=== PATIENT | female | born 1960 | race Caucasian/White ===

== ENCOUNTER 2023-11-12 10:47 | Inpatient (IN) | payer OTHER, SELFPAY ==
[2023-11-12] VITALS (10 sets, daily range): BP systolic 145–189; BP diastolic 74–104; BMI 52.6; BMI 51.1
--- NOTE | 2023-11-12 04:59 | EDRN ---
seen by her dentist yesterday and had x-ray and no infection found. Pt was placed on Pen V K and has taken 2 doses. Pt awoke in the night and swelling has increased. Pt has a lump in her L nostril and has a whitish drainage. Pt has pressure around
her sinus area. area warm to touch.
[2023-11-12 06:14] LABS: % Basophils 0.2 % (0-2); % Eosinophils 0.1 % (0-6); % Immature Granulocytes 1.4 % (0-0.5); % Lymphocytes 8.9 % (20.5-51.1); % Monocytes 7.5 % (1.7-9.3); % Neutrophils 81.9 % (42.2-75.2); Absolute Basophils 0.1 10^3/uL (0-0.2); Absolute Immature Granulocytes 0.4 10^3/uL (0-0.05); Absolute Lymphocytes 2.3 10^3/uL (1.2-3.4); Absolute Neutrophils 21.1 10^3/uL (1.4-6.5); Hemoglobin 15.7 g/dL (12.0-16.0); Mean Corp Hgb Conc. 35.7 g/dL (33.0-37.0); Mean Corpuscular Hgb 30.4 pg (27.0-31.0); Mean Corpuscular Volume 85.3 fL (81.0-99.0); Mean Platelet Volume 9.7 fL (7.4-10.4); Nucleated Red Blood Cells % 0 %; Platelet Count 453 10^3/uL (130-400); Red Blood Cell Count 5.16 10^6/uL (4.20-5.40); Red Cell Dist. Width 13.4 % (11.5-14.5); White Blood Cell Count 25.8 10^3/uL (4.8-10.8)
[2023-11-12 06:31] LABS: ALT (SGPT) 24 U/L (0-35); AST (SGOT) 16 U/L (14-36); Albumin 3.8 g/dl (3.5-5.0); Alkaline Phosphatase 84 U/L (38-126); Blood Urea Nitrogen 18 mg/dl (7-17); Calcium 9.2 mg/dl (8.4-10.2); Carbon Dioxide 23 mmol/L (22-30); Chloride 108 mmol/L (98-107); Estimated Creatinine Clearance 109 ml/min; Glucose 111 mg/dl (70-99); Potassium 3.5 mmol/L (3.5-5.1); Sodium 138 mmol/L (135-145); Total Bilirubin 0.6 mg/dl (0.2-1.3); eGFR > 60.00
[2023-11-12] MEDS: ZOSYN 50 IV (07:06)
--- NOTE | 2023-11-12 08:04 | ED.GENMED ---
History of Present Illness
General
Chief Complaint: Facial Problem
Source: patient
Exam Limitations: none
Time Seen by Provider: 11/12/23 06:07
Travel History
Have you had any contact with someone who has COVID-19?: No
Do you have any symptoms of coronavirus? Fever > 100 degrees, chills, cough, shortness of breath, sore throat, loss of taste or smell, muscle aches, or headache?: No
History of Present Illness
History of Present Illness:
62-year-old female who presents with left facial swelling. Patient states that she saw her dentist yesterday due to some discomfort and was put on antibiotics. She states that the dentist did not see much on x-rays. She states she does not really
have dental pain. She admits that this morning her face 'blew up'. No fevers. Vomiting. No injury. She does have discomfort to the left nasolabial region.
Past History
Past History
ED Past Medical History: HTN
Phy Exam
Physical Exam
Physical Exam:
CONSTITUTIONAL Patient alert and oriented to person, place and time. Well-appearing. Vital signs reviewed.
HEAD atraumatic, normocephalic.
ENT moderate left facial swelling from left mandibular area up into the left maxillary region and in the infraorbital region. There is redness throughout this region. There is induration throughout the maxillary region. Her dentition is
nontender to palpation or percussion. She does have induration up in the gingiva and skin near the nasolabial fold on the left. No vesicles
EYES eyelids normal to inspection, Pupils equally round and reactive to light, Extraocular muscles intact, Conjunctiva normal, Sclera normal.
NECK normal range of motion, Trachea midline, no jugular venous distention.
RESPIRATORY CHEST No respiratory distress noted, Chest expansion equal
BACK no obvious deformities
UPPER EXTREMITY range of motion normal, Motor strength normal, no cyanosis, no edema.
LOWER EXTREMITY range of motion normal, Motor strength normal, no cyanosis, no edema.
NEURO Speech normal, No focal motor deficits, [place] coma scale 15, Memory normal, Cranial Nerves intact to screening exam.
SKIN skin warm, dry, and normal in color.
PSYCHIATRIC patient oriented to person place and time, Normal affect.
Course
Orders/Labs/Results
Orders:
Orders
11/12/23 Breakfast
IDDSI 6 - Soft & Bite Sized
At Your Request: Full Participation
11/12/23 06:06
CBC/With Diff [Complete Blood Count/With Diff] Urgent
CMP [Comprehensive Metabolic Panel] Urgent
11/12/23 06:57
CT Facial Bones W/ Iv Contrast Urgent
Comment:
Reason For Exam: facial swelling, leukocytosis
11/12/23 06:58
Piperacillin/Tazo 3.375 Gram [Zosyn] 3.375 gram in 50 ml IV NOW
11/12/23 08:53
Morphine Sulfate 4 mg IV NOW STA
11/12/23 09:20
HYDROmorphone [Dilaudid] 1 mg IV Q3HPRN PRN
Ice Application [Cold Application] As Directed
Location: left cheek
Frequency: Intermittent q2h
Duration of Application: No longer than 20 minutes
Method of Delivery: Ice packs
11/12/23 09:21
Admit/Transfer Patient As Directed
Co-Sign Provider:
Level of Care: Inpatient admission
Assign to:: Medical/Surgical
Physician / Group: nessa stafford
Diagnosis: left cheek cellulitis
Reason for Hospitalization: left cheek cellulitis
Expected length of stay greater than two midnights?: Yes
ELOS- Estimated Length of Stay in days: 2
I certify the patient meets the requirements for IP care: Yes
11/12/23 09:30
HYDROmorphone [Dilaudid] 1 mg .ROUTE .STK-MED ONE
11/12/23 09:32
Code Status As Directed
Resuscitation Status: Full Code
11/12/23 10:12
MetroNIDAZOLE 500 MG/100 ML [Flagyl 500 mg] 100 ml IV NOW
11/12/23 11:22
Docusate W/Senna [Senokot-S] 2 tablet PO BID
Hydrochlorothiazide [Oretic] 25 mg PO DAILY
Ondansetron Injectable [Zofran] 4 mg IV Q6HPRN PRN
Polyethylene Glycol Powder [Miralax] 17 grams PO DAILY
estradiol [Yuvafem] 10 mcg VAG MOWEFR
11/12/23 11:22
WOUND/OSTOMY CONSULT Routine
Reason for Consult: recent excision of ingrown toenail on great toe
Blood Culture Urgent
DAVE Source: Blood/Venous
Specimen Description:
Activity As Directed
Activity Level: Ambulate
Vital Signs As Directed
Frequency: Per unit guidelines
Cpap [RESP] Routine
Patient to use own unit?: No
Set Pressure (cm H2O): 14
DX Deep Vein Thrombosis Video Routine
11/12/23 11:30
Losartan [Cozaar] 100 mg PO DAILY
11/12/23 11:32
Acetaminophen [Tylenol] 1,000 mg PO Q4HPRN PRN
11/12/23 12:00
Ampicillin/Sulbactam 3 G [Unasyn] 3 gm 0.9% Sodium Chloride 100 ml [Nss] 100 ml IV ONCE
CefTRIAXone [Rocephin] 2,000 mg IV ONCE ONE
Diphenhydramine [Benadryl] 50 mg IV ONCE ONE
Sterile Water [Sterile Water For Injection] 20 ml IV ONCE ONE
11/12/23 18:00
Enoxaparin Sodium [Lovenox] 40 mg SC QPM
11/12/23 22:00
Amlodipine [Norvasc] 2.5 mg PO HS
11/13/23 06:00
Complete Blood Count/With Diff IN AM
Comprehensive Metabolic Panel IN AM
Abnormal Lab Results
11/12/23
06:06
WBC 25.8 H 10^3/uL
(4.8-10.8)
Plt Count 453 H 10^3/uL
(130-400)
Abs Immat Gran (auto) 0.4 H 10^3/uL
(0-0.05)
Absolute Neuts (auto) 21.1 H 10^3/uL
(1.4-6.5)
Absolute Monos (auto) 2.0 H 10^3/uL
(0.1-0.6)
Immature Gran % 1.4 H %
(0-0.5)
Neutrophils % 81.9 H %
(42.2-75.2)
Lymphocytes % 8.9 L %
(20.5-51.1)
Chloride 108 H mmol/L
(98-107)
BUN 18 H mg/dl
(7-17)
Glucose 111 H mg/dl
(70-99)
11/12/23 06:06
11/12/23 06:06
Vital Signs
Initial and Last Documented VS:
Initial Vital Signs
Pulse Resp BP Pulse Ox
71 18 189/104 96
11/12/23 04:06 11/12/23 04:06 11/12/23 04:06 11/12/23 04:06
Last Documented Vital Signs
Temp Pulse Resp BP Pulse Ox
98.1 F 65 20 184/100 97
11/12/23 11:32 11/12/23 11:32 11/12/23 11:32 11/12/23 11:32 11/12/23 11:32
Procedures
Incision/Drainage/Joint Aspiration
Left Face:
Anethesia: 1% Lidocaine with Epi
Type of procedure: incise
Nature of site: abscess (suspected dental abscess)
How much fluid was obtained?: scant amount
Fluid description: bloody
Treatment: left open for drainage
Additional information:
Attempted drainage of induration at the gingiva suspecting a dental abscess no significant drainage from that site. Small amount of blood only.
MDM/Problems Addressed
MDM/Problems Addressed:
facial cellulitis
*Radiology
Radiology exam reviewed: radiology read reviewed
*Pulse Oximetry
Patient hypoxic: no
*Critical Care Note
Total Time (30-74mins, 75-104mins- exclusive of procedures): Not Applicable
Data Reviewed
Source: patient
Further Testing Considered But Not Given:
Consider blood cultures but does not appear systemically ill
Patient Management
Discussion with other providers: Hospitalist
Escalation/DeEscalation of care consider admission/obs:
62-year-old female presents with facial cellulitis. Attempted drainage of the possibility of dental abscess but no pustulous drainage noted. IV antibiotics. Admit.
ED Attending Note
-
Portions of this chart may have been created with voice recognition software.� Occasional wrong word or��sound alike� substitutions may have occurred due to the inherent limitations of voice recognition software.
Discharge Plan
Departure
Patient Disposition: Admit
Date of Disposition: 11/12/23
Time of Disposition: 08:07
Admit to: Med/Surg
Presentation/result/management discussed w/ accepting MD/DO: Hospitalist
Discharge Problem:
Facial cellulitis
Interventions
Interventions:
*Risk Screen - Suicide Last Done: 11/12/23 04:53
*General Assessment Last Done: 11/12/23 04:53
*Neglect/Abuse Screening Last Done: 11/12/23 04:53
ED- Fall Risk Assessment Last Done: 11/12/23 04:53
*ED COVID-19 Vaccine History Last Done: 11/12/23 04:53
*Nursing Disposition Last Done: 11/12/23 11:35
ED- Neurological Assessment Last Done: 11/12/23 04:53
ED-Skin Assessment Last Done: 11/12/23 07:13
Discharge Date and Time
Discharge Date/Time: 11/12/23 11:36
--- NOTE | 2023-11-12 08:56 | HPS.HSE ---
Family Physician
-
Family Physician: Quan Middleton
Chief Complaint
-
Left facial swelling
History of Present Illness
62-year-old female with a past medical history of hypertension, migraine headaches, and morbid obesity presents with left facial swelling and pain since yesterday. Patient was seen by her dentist yesterday, who suspected she may need a root canal.
She states she woke up today, and her facial swelling became worse, associated with severe pain. Pain is 10 out of 10 in intensity. No drooling. She is able to tolerate her secretions. She denies fever. No chills. No chest pain, no shortness
of breath. No vomiting.
Medical History
Past Medical History
Past Medical History: Reports Other
Additional Past Medical History:
HTN
ALEKSANDER
Morbid Obesity
Osteoarthritis
Right hand fracture status post surgery
Ovarian cysts
Past Surgical History: Reports Other
Additional Past Surgical History:
x 2
Bilateral hip replacement
Cholecystectomy
Left oophorectomy
Bladder reconstruction
Right hand surgery
Social History
Tobacco: Non-smoker
Alcohol: Occasional
Drug: None
Personal:
Living: With Family
Family History
Family History: Not pertinent
Allergies / Home Medications
Allergies reflects when Allergies were last updated in [facility].
Home Medications with original date entered in [facility]
Allergy/Medication List:
Allergies
Allergy/AdvReac Type Severity Reaction Status Date / Time
piperacillin [From Zosyn] Allergy Rash Verified 11/12/23 09:11
tazobactam [From Zosyn] Allergy Rash Verified 11/12/23 09:11
blue cheese Allergy Rash Uncoded 11/12/23 04:06
Home Medications Table - record
�Medication �Instructions �Recorded �Confirmed
amlodipine 2.5 mg tablet 2.5 mg PO HS Blood Pressure 11/12/23 11/12/23
jrqwugi-xjljumufnfahn-imcapaxk 250 2 tab PO DAILYPRN PRN migraine 11/12/23 11/12/23
mg-250 mg-65 mg tablet (Excedrin
Migraine)
ergocalciferol (vitamin D2) 1,250 2,500 mcg PO QMONTH Supplement 11/12/23 11/12/23
mcg (50,000 unit) capsule
estradiol 10 mcg vaginal tablet 10 mcg vaginal MOWEFR Hormonal 11/12/23 11/12/23
(Yuvafem) Agent
hydrochlorothiazide 25 mg tablet 25 mg PO DAILY Blood 11/12/23 11/12/23
Pressure/fluid retention
ibuprofen 200 mg tablet (Advil) 600 mg PO DAILYPRN PRN mild pain 11/12/23 11/12/23
losartan 100 mg tablet 100 mg PO DAILY Blood Pressure 11/12/23 11/12/23
penicillin V potassium 500 mg 500 mg PO DIRECTED Infection 11/12/23 11/12/23
tablet prophylaxis
Review of Systems
-
A 12 point ROS was completed and negative except as noted: Yes
Physical Exam
Vital Signs
Vital Signs
Temp Pulse Resp BP Pulse Ox
98.5 F 72 16 145/74 97
11/12/23 04:11 11/12/23 07:04 11/12/23 07:04 11/12/23 08:08 11/12/23 08:15
Physical Exam
General: No Apparent Distress
HEENT: Other (Severe diffuse swelling of the left cheek, left lower orbit, left chin)
Respiratory: Clear
Cardiac: S1/S2
GI: Soft, Non Tender, Non Distended and Normal Bowel Sounds
Musculoskeletal: No Clubbing, No Cyanosis and No Edema
Psych: Calm
Laboratory Results
-
11/12/23 06:06
11/12/23 06:06
Laboratory Results
Total Bilirubin 0.6 mg/dl (0.2-1.3) 11/12/23 06:06
AST 16 U/L (14-36) 11/12/23 06:06
ALT 24 U/L (0-35) 11/12/23 06:06
Alkaline Phosphatase 84 U/L (38-126) 11/12/23 06:06
Impression/Plan
-
#Severe left facial cellulitis
ER attempted to drain, but nothing came out
CT negative for abscess
Patient had reaction to Zosyn
Will treat with Rocephin and Flagyl for anaerobic coverage
Trend fever and white count
#Left big toe ingrown toenail
Status post recent removal
Consult wound care
#Benign essential hypertension
Continue home medications
#Morbid obesity
Affects all aspects of care
Obstructive sleep apnea
Continue CPAP
DVT prophylaxis�Lovenox
Full code
Total time spent to see the patient on the floor, examine the patient, review data and lab results, discuss treatment plan with patient, nursing staff around 75 minutes.
[2023-11-12] MEDS: MORPHINE SULFATE 4 MG IV (08:59)
[2023-11-12] MEDS: DILAUDID 1 MG IV ×5 (09:35→22:38)
[2023-11-12] MEDS: FLAGYL 500 MG 100 IV ×2 (10:31→17:02)
[2023-11-12] MEDS: COZAAR 100 MG PO (11:48)
[2023-11-12] MEDS: ORETIC 25 MG PO (11:48)
[2023-11-12] MEDS: SENOKOT-S 2 TABLET PO ×2 (11:50→22:12)
[2023-11-12] MEDS: MIRALAX 17 GRAMS PO (11:50)
[2023-11-12] MEDS: STERILE WATER FOR INJECTION 20 ML IV (12:26)
[2023-11-12] MEDS: ROCEPHIN 2000 MG IV (12:30)
--- NOTE | 2023-11-12 14:37 | WOUNDNOTE ---
LEFT GREAT TOE
--- NOTE | 2023-11-12 14:38 | WOUNDNOTE ---
[facility] RN NOTE: Reviewed chart and met with patient. Patient states she had a recent excision of in-grown toe nail on left great toe. Per her Dean order, she has been cleaning toe daily, applying antibiotic ointment and band-aid. Patient states
she is able to ambulate at home without difficulty and turns easily in [facility] bed. Heels intact. Will confirm orders. RN, Dom updated. Will continue to follow as needed.
[2023-11-12] MEDS: POLYSPORIN OINTMENT 1 APPLIC TOPICAL (16:22)
[2023-11-12] MEDS: LOVENOX 40 MG SC (17:02)
[2023-11-12] MEDS: ZOFRAN 4 MG IV (17:56)
[2023-11-12] MEDS: NORVASC 2.5 MG PO (22:12)
[2023-11-12] MEDS: FLUSH (NSS) 2 FLUSH IV (22:38)
[2023-11-13] MEDS: FLAGYL 500 MG 100 IV ×2 (02:18→09:22)
[2023-11-13] MEDS: DILAUDID 1 MG IV ×3 (02:24→12:37)
[2023-11-13] MEDS: FLUSH (NSS) 2 FLUSH IV (02:25)
[2023-11-13 06:24] LABS: % Basophils 0.1 % (0-2); % Eosinophils 0.4 % (0-6); % Immature Granulocytes 1.1 % (0-0.5); % Lymphocytes 7.4 % (20.5-51.1); % Monocytes 6.3 % (1.7-9.3); % Neutrophils 84.7 % (42.2-75.2); Absolute Eosinophils 0.1 10^3/uL (0-0.7); Absolute Immature Granulocytes 0.3 10^3/uL (0-0.05); Absolute Monocytes 1.7 10^3/uL (0.1-0.6); Hematocrit 40.9 % (37.0-47.0); Hemoglobin 14.1 g/dL (12.0-16.0); Mean Corp Hgb Conc. 34.5 g/dL (33.0-37.0); Mean Corpuscular Hgb 30.5 pg (27.0-31.0); Mean Corpuscular Volume 88.5 fL (81.0-99.0); Nucleated Red Blood Cells % 0 %; Platelet Count 373 10^3/uL (130-400); Red Blood Cell Count 4.62 10^6/uL (4.20-5.40); Red Cell Dist. Width 13.2 % (11.5-14.5); White Blood Cell Count 27.2 10^3/uL (4.8-10.8)
[2023-11-13 07:06] LABS: ALT (SGPT) 40 U/L (0-35); AST (SGOT) 24 U/L (14-36); Albumin 3.8 g/dl (3.5-5.0); Alkaline Phosphatase 79 U/L (38-126); Blood Urea Nitrogen 20 mg/dl (7-17); Calcium 9.1 mg/dl (8.4-10.2); Carbon Dioxide 26 mmol/L (22-30); Chloride 98 mmol/L (98-107); Estimated Creatinine Clearance 106 ml/min; Glucose 106 mg/dl (70-99); Potassium 4.2 mmol/L (3.5-5.1); Sodium 130 mmol/L (135-145); Total Bilirubin 0.7 mg/dl (0.2-1.3); Total Protein 6.8 g/dl (6.3-8.2); eGFR > 60.00
[2023-11-13] MEDS: ORETIC 25 MG PO (07:45)
[2023-11-13] MEDS: MIRALAX 17 GRAMS PO (07:45)
[2023-11-13] MEDS: POLYSPORIN OINTMENT 1 APPLIC TOPICAL (07:46)
[2023-11-13] MEDS: COZAAR 100 MG PO (07:46)
[2023-11-13] MEDS: SENOKOT-S 2 TABLET PO ×2 (07:46→21:07)
[2023-11-13 07:54] VITALS: BP 163/85
--- NOTE | 2023-11-13 09:04 | W.PN.HOSP.TC ---
Addendum entered and electronically signed by Dex Saucedo MD 11/13/23 15:06:
#Hyponatremia
From excess ADH release from pain, start fluid restriction, trend Na
Original Note:
Today's Communication/Plan
-
see bold
Assessment / Plan
Assessment / Plan
HPI:62-year-old female with a past medical history of hypertension, migraine headaches, and morbid obesity presents with left facial swelling and pain since yesterday. Patient was seen by her dentist yesterday, who suspected she may need a root
canal. She states she woke up today, and her facial swelling became worse, associated with severe pain. Pain is 10 out of 10 in intensity. No drooling. She is able to tolerate her secretions. She denies fever. No chills. No chest pain, no
shortness of breath. No vomiting.
#Severe left facial cellulitis
ER attempted to drain, but nothing came out
CT negative for abscess
Patient had reaction to Zosyn
Appreciate ID input, abx changed to unasyn/vanc
Appreciate ENT input, likely odontogenic source, added IV steroids, and warm soaks
Trend fever and white count
#Left big toe ingrown toenail
Status post recent removal
Continue wound care
#Benign essential hypertension
Continue home medications
#Morbid obesity
Affects all aspects of care
#Obstructive sleep apnea
Continue CPAP
DVT prophylaxis�Lovenox
Full code
Total time spent to see the patient on the floor, examine the patient, review data and lab results, discuss treatment plan with patient, nursing staff around 50 minutes.
Physical Exam
General: Obese, no Apparent Distress
HEENT: Other (Severe diffuse swelling of the left cheek, left lower orbit, left chin, now spread to right cheek)
Respiratory: Clear
Cardiac: S1/S2
GI: Soft, Non Tender, Non Distended and Normal Bowel Sounds
Musculoskeletal: No Clubbing, No Cyanosis and No Edema
Psych: Calm
Anticipated Discharge: 24 - 48 hours
Subjective/Interval History
-
Date of Service: November 13, 2023
Left facial swelling improved, but now spread to right cheek. Pain improved. No vomiting, but difficult to eat. No fever.
Objective Data
-
Labs:
Laboratory Results
11/13/23
05:45
WBC 27.2 H
Hgb 14.1
Hct 40.9
Plt Count 373
Sodium 130 L D
Potassium 4.2
Chloride 98
Carbon Dioxide 26
BUN 20 H
Creatinine 0.7
Glucose 106 H
Calcium 9.1
Total Bilirubin 0.7
AST 24
ALT 40 H
Alkaline Phosphatase 79
Vital Signs:
Vital Signs
Temp Pulse Resp BP Pulse Ox
98.2 F 66 16 163/85 99
11/13/23 07:54 11/13/23 07:54 11/13/23 07:54 11/13/23 07:54 11/13/23 07:54
I&O
11/12/23 11/13/23 11/14/23
06:59 06:59 06:59
Intake Total 580 / 580
Balance 580 / 580
[2023-11-13] MEDS: ROCEPHIN 2000 MG IV (10:57)
[2023-11-13] MEDS: STERILE WATER FOR INJECTION 20 ML IV (10:57)
--- NOTE | 2023-11-13 12:46 | CON.ID ---
Consultation
-
Date/Time Consultation Requested: 11/13/2023 0834
Date/Time Consultation Performed: 11/13/2023 1218
Requesting Provider: Dr. Saucedo
Performing Provider: Dr. Laird
Reason for Consultation: Left facial cellulitis
Chief Complaint / Past History
History of Present Illness
Steph Hammer is a 63-year-old female being evaluated at the request of Dr. Theodore to left facial cellulitis. History is obtained from chart review, along with patient interview, and additional history was obtained from the patient's who
was at the bedside.
The patient was in her usual state of health until 2 days ago when she woke up with swelling on the left face. She contacted her dentist who prescribed antibiotics which she took, but later that evening there was marked increase in pain and
swelling face, and she presented to the emergency room for further evaluation. Here she was found to have a marked leukocytosis, and she was placed on empiric antibiotics. She reports she initially received Zosyn, but during the infusion she
developed some itchiness on the arm where she was receiving the infusion. Antibiotics were then changed to ceftriaxone and metronidazole.
At this point in time she notes some ongoing discomfort in the facial area. She notes that some of the swelling has improved on the left side of the face, but now the right side of her face has had some increasing edema which she attributes to
being told to lay on her right side. She denies any fevers or chills. She denies any neck pain. She denies similar issues in the past.
Past History
Additional Past Medical History:
HTN
ALEKSANDER
Obesity
Osteoarthritis
Ovarian cyst
Additional Past Surgical History:
Right hand surgery
Cholecystectomy
Left oophorectomy
Bladder reconstruction
Allergy History:
piperacillin [From Zosyn] Adverse Reaction (Mild, Verified 11/13/23 12:46)
Itchiness of local area where infusion was occurring.
blue cheese Allergy (Uncoded 11/12/23 04:06)
Rash
Medications Reviewed: Yes
Current Antibiotics:
Ceftriaxone
Metronidazole
Social History
Tobacco: Non-Smoker
Alcohol: Occasional
Drug: None
Personal:
Living: With Family
Employment: Employed
Family History
Family History: Not Pertinent
Review of Systems
Review of Systems
General: Negative Fever or Chills
HEENT: Negative Stiff Neck
Cardiovascular: Negative Chest Pain
Genital / Urological: Negative Dysuria
Vital Signs
Temp Pulse Resp BP Pulse Ox
98.2 F 66 16 163/85 99
11/13/23 07:54 11/13/23 07:54 11/13/23 07:54 11/13/23 07:54 11/13/23 07:54
Physical Exam
Physical Exam
Constitutional: No Acute Distress, Comfortable and Non-toxic
Head: Normocephalic and Other (Swelling noted on the left face above the left upper lip, extending to the nose and to below the eye. Edema also noted of the right face.)
Eyes: Pupils Equal, Pupils Round, No Conjunctival Hemorrhage and Sclera Anicteric
Oral: No Thrush
Cardiovascular: Regular Rate and S1/S2; Negative S3/S4
Pulmonary: Clear; Negative Wheezes, Rales or Rhonchi
Gastrointestinal: Soft, Non Tender, Non Distended, No Rebound and No Guarding
Extremities: Edema, Cyanosis and Erythema
Musculoskeletal: Negative Joint Swelling or Joint Effusion
Skin: Warm and Dry; Negative Rash or Jaundice
Neurological: Awake and Alert
Psychological: Calm
.
Lab / Diagnostic Study Results
11/13/23 05:45
11/13/23 05:45
Abs Immat Gran (auto) 0.3 10^3/uL (0-0.05) H 11/13/23 05:45
Absolute Neuts (auto) 23.0 10^3/uL (1.4-6.5) H 11/13/23 05:45
Absolute Lymphs (auto) 2.0 10^3/uL (1.2-3.4) 11/13/23 05:45
Absolute Monos (auto) 1.7 10^3/uL (0.1-0.6) H 11/13/23 05:45
Absolute Basos (auto) 0.0 10^3/uL (0-0.2) 11/13/23 05:45
Immature Gran % 1.1 % (0-0.5) H 11/13/23 05:45
Neutrophils % 84.7 % (42.2-75.2) H 11/13/23 05:45
Lymphocytes % 7.4 % (20.5-51.1) L 11/13/23 05:45
Monocytes % 6.3 % (1.7-9.3) 11/13/23 05:45
Eosinophils % 0.4 % (0-6) 11/13/23 05:45
Basophils % 0.1 % (0-2) 11/13/23 05:45
Microbiology Results
Micro:
11/12/23 12:19 Blood Culture - Preliminary
Blood/Venous No Growth in 24 hours- Final report to follow
11/12/23 12:07 MRSA Screen - Pending
Nose
Imaging:
11/12/2023 CT facial bones with IV contrast: Markedly limited evaluation of the superficial facial soft tissues in light of marked beam hardening artifact from extensive dental metallic hardware. Edematous/inflammatory changes of the left-sided
superficial facial soft tissues with likely small volume bubbles of air suspicious for infectious process. Although no definitive well-formed abnormal focal fluid collection seen within the superficial left facial soft tissues, this cannot be
excluded on the basis of this study.
Assessment / Plan
Left facial cellulitis
Leukocytosis
HTN
ALEKSANDER
Obesity
Osteoarthritis
Ovarian cyst
Recommendations:
Transition to Unasyn with close observation.
Although likely otologic in etiology, given rise in WBC, will add empiric vanco.
Consider ENT evaluation.
Follow clinically,
Monitor WBC / temps.
Care Review
Plan reviewed with: Physician (Hospitalist)
--- NOTE | 2023-11-13 13:08 | PHA.VAN.IN ---
Assessment
- Assessment
Renal Function: Appears similar to baseline
Concomitant Antimicrobials: ampicillin/sulbactam
AUC Dosing Plan
- Dosing Variables
Dosing Weight (kg): 127
Dosing CrCl (ml/min): 106
Vd coefficient (L/kg): 0.5
- Empiric Dosing
Initial / Loading Dose: 2000mg - scheduled for 1600
Maintenance Regimen: Vanc 1250mg Q12H starting 11/13 599
Estimated AUC (mcg*h/mL): 456
Estimated Peak (mcg*h/mL): 29.4
Estimated Trough (mcg/ml): 11.1
Estimated Half Life (H): 7.5
Trial dose of ampicillin/sulbactam to be administered now - will time vancomycin to be administered at 1600 to be able to monitor amp/sul administration
- Monitoring
No levels ordered at this time: consider levels in next few days
Pharmacokinetics Vancomycin I
- -
Patient Age: 63
Patient Sex: Female
Vancomycin Day #: 1
Indication: Eye Or Ent Infection
Requesting Provider: Dr. Laird
Pertinent Antimicrobial Allergies:
piperacillin - itchy & rash on arm where IV was infusing
Height / Weight:
Height 5 ft 2 in
Actual Weight 126.598 kg
Pertinent Past Medical History: BMI ~51
- Vital Signs / Lab Results
Temp Pulse Resp BP Pulse Ox
98.2 F 66 16 163/85 99
11/13/23 07:54 11/13/23 07:54 11/13/23 07:54 11/13/23 07:54 11/13/23 07:54
Lab Results - Hematology
11/12/23 11/13/23
06:06 05:45
WBC 25.8 H 27.2 H
Lab Results - Chemistry
11/12/23 11/13/23
06:06 05:45
BUN 18 H 20 H
Creatinine 0.7 0.7
Estimated Creat Clear 109 106
Albumin 3.8 3.8
Microbiology Results
11/12/23 12:19 Blood Culture - Preliminary
Blood/Venous No Growth in 24 hours- Final report to follow
[2023-11-13] MEDS: UNASYN IV ×2 (13:55→18:15)
--- NOTE | 2023-11-13 14:42 | CON.MD ---
Consultation - Medical
-
63 yo c HTN presented c 1 day Hx of left facial swelling
CT shows cellulitis, no obvious abscess in tissues involving lip and left nostril / face
Had I & D in ER in sublabial tissues , no abscess
Dentist stated pt may need root canal
Started on Zosyn, changed to Rocephin / Flagyl due to reaction to Zosyn
Feeling better today
PE - Soft tissue edema in subcutaneous tissues of left upper lip and cheek
L nostril with some crusting , on palpation of edema, some purulence expressed into L nostril
A/P Facial cellulitis
Usually swelling in this area is odontogenic in nature
Does have some intranasal crusting and purulence so may represent primary soft tissue infection coming from nose
Generally responding to present antibx
Aerobic and anaerobic culture taken today of purulent drainage
Would offer 1-2 doses of steroids
Warm soaks to face and nose
[2023-11-13] MEDS: DECADRON 6 MG IV (15:32)
[2023-11-13] MEDS: VANCOCIN 540 MG IV (15:33)
[2023-11-13 15:38] VITALS: BP 166/89
--- NOTE | 2023-11-13 15:59 | CM ---
Reviewed chart, met with patient to obtain information for assessment. Patient stated that she lives with her spouse in a two story home with two steps.
She described herself as independent with her ADLs, personal care, dressing and bathing. She ambulates independently. She denied any DME in her home. She stated that she can drive and can get to her appointments and do her own shopping.
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
She has [facility]
Patient has a prescription plan and uses [facility] on for all of her medications.
Her PCP is, Dr. Quan Middleton.
Patient would like to return home when medically cleared for discharge. Will watch for needs.
[2023-11-13] MEDS: LOVENOX 40 MG SC (17:05)
[2023-11-13] MEDS: NORVASC 2.5 MG PO (21:08)
[2023-11-13] MEDS: TYLENOL 1000 MG PO (21:08)
[2023-11-13 23:35] VITALS: BP 139/73
[2023-11-14] MEDS: UNASYN IV ×5 (00:22→23:49)
[2023-11-14] MEDS: DECADRON 6 MG IV ×4 (00:23→23:48)
[2023-11-14] MEDS: FLUSH (NSS) 3 FLUSH IV ×2 (00:28→06:07)
[2023-11-14 06:42] LABS: Hemoglobin 14.1 g/dL (12.0-16.0); Mean Corp Hgb Conc. 34.4 g/dL (33.0-37.0); Mean Corpuscular Hgb 30.1 pg (27.0-31.0); Mean Corpuscular Volume 87.4 fL (81.0-99.0); Mean Platelet Volume 10.2 fL (7.4-10.4); Platelet Count 398 10^3/uL (130-400); Red Blood Cell Count 4.69 10^6/uL (4.20-5.40); White Blood Cell Count 22.1 10^3/uL (4.8-10.8)
[2023-11-14 07:18] LABS: Blood Urea Nitrogen 19 mg/dl (7-17); Calcium 9.5 mg/dl (8.4-10.2); Carbon Dioxide 25 mmol/L (22-30); Chloride 101 mmol/L (98-107); Estimated Creatinine Clearance 124 ml/min; Glucose 143 mg/dl (70-99); Potassium 4.1 mmol/L (3.5-5.1); Sodium 134 mmol/L (135-145); eGFR > 60.00
[2023-11-14] MEDS: VANCOCIN 275 MG IV ×2 (07:48→17:55)
[2023-11-14 07:57] VITALS: BP 135/79
--- NOTE | 2023-11-14 08:29 | W.PN.HOSP.TC ---
Today's Communication/Plan
-
see bold
Assessment / Plan
Assessment / Plan
HPI:62-year-old female with a past medical history of hypertension, migraine headaches, and morbid obesity presents with left facial swelling and pain since yesterday. Patient was seen by her dentist yesterday, who suspected she may need a root
canal. She states she woke up today, and her facial swelling became worse, associated with severe pain. Pain is 10 out of 10 in intensity. No drooling. She is able to tolerate her secretions. She denies fever. No chills. No chest pain, no
shortness of breath. No vomiting.
#Severe left facial cellulitis
ER attempted to drain, but nothing came out
CT negative for abscess
Patient had reaction to Zosyn
Appreciate ID input, abx changed to unasyn/vanc 11/12
Appreciate ENT input, likely odontogenic source, added IV steroids 11/12, and warm soaks
Much improved, hopeful for discharge tomorrow if cleared by ID and ENT
Trend fever and white count
#Hyponatremia
From excess ADH release from pain
Improved on fluid restriction, trend Na
#Left big toe ingrown toenail
Status post recent removal
Continue wound care
#Benign essential hypertension
Continue home medications
#Morbid obesity
Affects all aspects of care
#Obstructive sleep apnea
Continue CPAP
DVT prophylaxis�Lovenox
Full code
Total time spent to see the patient on the floor, examine the patient, review data and lab results, discuss treatment plan with patient, nursing staff around 35 minutes.
Physical Exam
General: Obese, no Apparent Distress
HEENT: Other (Severe diffuse swelling of the left cheek, left lower orbit, left chin, now spread to right cheek)
Respiratory: Clear
Cardiac: S1/S2
GI: Soft, Non Tender, Non Distended and Normal Bowel Sounds
Musculoskeletal: No Clubbing, No Cyanosis and No Edema
Psych: Calm
Anticipated Discharge: Within 24 hours
Subjective/Interval History
-
Date of Service: November 13, 2023
Facial pain and swelling much improved. Tolerating diet. No fever, no vomiting.
Objective Data
-
Labs:
Laboratory Results
11/13/23
05:45
WBC 27.2 H
Hgb 14.1
Hct 40.9
Plt Count 373
Sodium 130 L D
Potassium 4.2
Chloride 98
Carbon Dioxide 26
BUN 20 H
Creatinine 0.7
Glucose 106 H
Calcium 9.1
Total Bilirubin 0.7
AST 24
ALT 40 H
Alkaline Phosphatase 79
Vital Signs:
Vital Signs
Temp Pulse Resp BP Pulse Ox
98.2 F 66 16 163/85 99
11/13/23 07:54 11/13/23 07:54 11/13/23 07:54 11/13/23 07:54 11/13/23 07:54
I&O
11/12/23 11/13/23 11/14/23
06:59 06:59 06:59
Intake Total 580 / 580
Balance 580 / 580
[2023-11-14] MEDS: MIRALAX 17 GRAMS PO (08:34)
[2023-11-14] MEDS: SENOKOT-S 2 TABLET PO (08:34)
[2023-11-14] MEDS: POLYSPORIN OINTMENT 1 APPLIC TOPICAL (08:34)
[2023-11-14] MEDS: NON-FORMULARY ITEM 10 MCG VAG (08:34)
[2023-11-14] MEDS: COZAAR 100 MG PO (08:35)
[2023-11-14] MEDS: ORETIC 25 MG PO (08:35)
[2023-11-14] MEDS: TYLENOL 1000 MG PO ×2 (08:46→20:15)
[2023-11-14] MEDS: DIFLUCAN 150 MG PO (10:02)
--- NOTE | 2023-11-14 11:37 | W.PN.ENT ---
Today's Communication
-
as above
Impression / Plan
-
Greatly improved.
CPM
Hopefully home tomorrow
Subjective Data
-
Pt feels much betters david pus was expressed yesterday
Objective Data
-
Vital Signs
Temp Pulse Resp BP Pulse Ox
98.6 F 64 16 135/79 94
11/14/23 07:57 11/14/23 08:35 11/14/23 07:57 11/14/23 08:35 11/14/23 07:57
Intake & Output
11/13/23 11/14/23 11/15/23
06:59 06:59 06:59
Intake:
Oral fluids 480 / 480 960 / 960 480 / 480
IV piggybacks 100 / 100 515 / 515
Other:
Number of approximated MODERATE 2 2 3
amounts of urine
Lab Results
11/14/23 05:59
11/14/23 05:59
Calcium 9.5 mg/dl (8.4-10.2) 11/14/23 05:59
Total Bilirubin 0.7 mg/dl (0.2-1.3) 11/13/23 05:45
AST 24 U/L (14-36) 11/13/23 05:45
ALT 40 U/L (0-35) H 11/13/23 05:45
Alkaline Phosphatase 79 U/L (38-126) 11/13/23 05:45
Physical Exam
-
Minimal swelling; no redness
--- NOTE | 2023-11-14 11:52 | PHA.VAN.FU ---
Vancomycin Assessment / Plan
- Assessment
Renal Function: Stable
WBC's are: Trending Down
In the past 24 hrs, patient has been: Afebrile
Concomitant Antimicrobials: amp-sulbactam
- Dosing Plan
Continue: vanc 1250 mg q12h
- Monitoring Plan
No level(s) ordered at this time: consider in the upcoming days
- Follow Up
Pharmacy will continue to follow.
Vancomycin Follow UP
- -
Patient Age: 63
Patient Sex: Female
Vancomycin Day #: 2
Indication: Eye Or Ent Infection
Requesting Provider: Dr. Laird
Pertinent Antimicrobial Allergies:
piperacillin - itchy & rash on arm where IV was infusing
Height / Weight:
Height 5 ft 2 in
Actual Weight 126.598 kg
Pertinent Past Medical History: BMI ~51
- Vital Signs / Lab Results
Temp Pulse Resp BP Pulse Ox
98.6 F 64 16 135/79 94
11/14/23 07:57 11/14/23 08:35 11/14/23 07:57 11/14/23 08:35 11/14/23 07:57
Lab Results - Hematology
11/12/23 11/13/23 11/14/23
06:06 05:45 05:59
WBC 25.8 H 27.2 H 22.1 H
Lab Results - Chemistry
11/12/23 11/13/23 11/14/23
06:06 05:45 05:59
BUN 18 H 20 H 19 H
Creatinine 0.7 0.7 0.6
Estimated Creat Clear 109 106 124
Albumin 3.8 3.8
Microbiology Results
11/12/23 12:07 MRSA Screen - Final
Nose Staph aureus MRSA
11/12/23 12:19 Blood Culture - Preliminary
Blood/Venous No Growth in 24 hours- Final report to follow
--- NOTE | 2023-11-14 13:45 | W.PN.ID1 ---
Date of Service
Date of Service: November 14, 2023
Today's Communication
Continue antibiotics
Assessment / Plan
Left facial cellulitis
Leukocytosis
MRSA colonized.
HTN
[place]
Obesity
Osteoarthritis
Ovarian cyst
Recommendations:
Patient overall feels better today.
Evaluated by ENT yesterday, with expression of purulence. Unfortunately cultures not available at this time.
Also found to be MRSA screen positive. Have asked lab to workup sample and provide susceptibilities.
Continue with current antibiotics for the present.
May be able to transition to an oral regimen in the next 24 to 48 hours.
Chief Complaint
-: Cellulitis
Subjective / Review of Systems
Patient seen and examined. Reports decreased swelling of the face, both on the left upper lip, and right cheek.
Review of Systems: No Fever and No Chills
Vital Signs / Physical Exam
Vital Signs
Vital Signs
Temp Pulse Resp BP Pulse Ox
98.6 F 64 16 135/79 94
11/14/23 07:57 11/14/23 08:35 11/14/23 07:57 11/14/23 08:35 11/14/23 07:57
Physical Exam
Constitutional: No Acute Distress, Comfortable and Non-toxic
Head: Other (Decreased swelling/edema of the left upper lip and nasolabial fold area. Decreased edema of the right cheek.)
Eyes: Sclera Anicteric
Pulmonary: Non Labored
Neurological: Awake and Alert
Psychological: Calm
Objective Data
Lab Data
Lab Results
11/14/23 05:59
11/14/23 05:59
Estimated Creat Clear 124 ml/min 11/14/23 05:59
Total Bilirubin 0.7 mg/dl (0.2-1.3) 11/13/23 05:45
AST 24 U/L (14-36) 11/13/23 05:45
ALT 40 U/L (0-35) H 11/13/23 05:45
Alkaline Phosphatase 79 U/L (38-126) 11/13/23 05:45
Most recent labs reviewed.
Micro Results:
11/12/23 12:19 Blood Culture - Preliminary
Blood/Venous No Growth in 48 hours- Final report to follow
11/12/23 12:07 MRSA Screen - Final
Nose Staph aureus MRSA
Imaging:
11/12/2023 CT facial bones with IV contrast: Markedly limited evaluation of the superficial facial soft tissues in light of marked beam hardening artifact from extensive dental metallic hardware. Edematous/inflammatory changes of the left-sided
superficial facial soft tissues with likely small volume bubbles of air suspicious for infectious process. Although no definitive well-formed abnormal focal fluid collection seen within the superficial left facial soft tissues, this cannot be
excluded on the basis of this study.
[2023-11-14 15:55] VITALS: BP 153/85
[2023-11-14] MEDS: LOVENOX 40 MG SC (16:57)
[2023-11-14] MEDS: SENOKOT-S PO (20:09)
[2023-11-14] MEDS: NORVASC 2.5 MG PO (21:55)
[2023-11-14 23:55] VITALS: BP 131/77
[2023-11-15] MEDS: UNASYN IV ×2 (05:17→12:34)
[2023-11-15] MEDS: VANCOCIN 275 MG IV (06:15)
[2023-11-15 07:53] VITALS: BP 156/88
[2023-11-15 08:20] LABS: Hematocrit 41.7 % (37.0-47.0); Hemoglobin 14.2 g/dL (12.0-16.0); Mean Corp Hgb Conc. 34.1 g/dL (33.0-37.0); Mean Platelet Volume 10.8 fL (7.4-10.4); Platelet Count 376 10^3/uL (130-400); Red Blood Cell Count 4.74 10^6/uL (4.20-5.40); Red Cell Dist. Width 12.8 % (11.5-14.5); White Blood Cell Count 19.5 10^3/uL (4.8-10.8)
[2023-11-15] MEDS: POLYSPORIN OINTMENT 1 APPLIC TOPICAL (08:20)
[2023-11-15] MEDS: DIFLUCAN 150 MG PO (08:20)
[2023-11-15] MEDS: ORETIC 25 MG PO (08:21)
[2023-11-15] MEDS: DECADRON 6 MG IV ×2 (08:22→16:20)
[2023-11-15] MEDS: COZAAR 100 MG PO (08:23)
[2023-11-15] MEDS: SENOKOT-S PO (08:24)
[2023-11-15] MEDS: MIRALAX PO (08:25)
[2023-11-15 08:57] LABS: Blood Urea Nitrogen 21 mg/dl (7-17); Carbon Dioxide 21 mmol/L (22-30); Chloride 103 mmol/L (98-107); Estimated Creatinine Clearance 124 ml/min; Glucose 120 mg/dl (70-99); Potassium 4.4 mmol/L (3.5-5.1); Sodium 135 mmol/L (135-145); eGFR > 60.00
[2023-11-15 08:58] LABS: Calcium 9.1 mg/dl (8.4-10.2)
--- NOTE | 2023-11-15 09:49 | W.PN.HOSP.TC ---
Addendum entered and electronically signed by Dex Saucedo MD 11/15/23 14:02:
ID has cleared the patient for discharge on Augmentin and doxycycline for 1 week.
ID will call her with the sensitivities
Follow-up with ENT in the office in 2 weeks.
Original Note:
Today's Communication/Plan
-
Awaiting sensitivities of MRSA
Discharge when cleared by ID
Assessment / Plan
Assessment / Plan
HPI:62-year-old female with a past medical history of hypertension, migraine headaches, and morbid obesity presents with left facial swelling and pain since yesterday. Patient was seen by her dentist yesterday, who suspected she may need a root
canal. She states she woke up today, and her facial swelling became worse, associated with severe pain. Pain is 10 out of 10 in intensity. No drooling. She is able to tolerate her secretions. She denies fever. No chills. No chest pain, no
shortness of breath. No vomiting.
#Severe left facial cellulitis
ER attempted to drain, but nothing came out
CT negative for abscess
Patient had reaction to Zosyn
Appreciate ID input, abx changed to unasyn/vanc 11/12
Appreciate ENT input, likely odontogenic source, added IV steroids 11/12, and warm soaks
Much improved, awaiting sensitivities of MRSA
Discharge when cleared by ID and ENT
Trend fever and white count
#Hyponatremia
From excess ADH release from pain
Improved on fluid restriction, trend Na
#Left big toe ingrown toenail
Status post recent removal
Continue wound care
#Benign essential hypertension
Continue home medications
#Morbid obesity
Affects all aspects of care
#Obstructive sleep apnea
Continue CPAP
DVT prophylaxis�Lovenox
Full code
Total time spent to see the patient on the floor, examine the patient, review data and lab results, discuss treatment plan with patient, nursing staff around 35 minutes.
Physical Exam
General: Obese, no Apparent Distress
HEENT: Other (Severe diffuse swelling of the left cheek, left lower orbit, left chin, now spread to right cheek)
Respiratory: Clear
Cardiac: S1/S2
GI: Soft, Non Tender, Non Distended and Normal Bowel Sounds
Musculoskeletal: No Clubbing, No Cyanosis and No Edema
Psych: Calm
Anticipated Discharge: Within 24 hours
Subjective/Interval History
-
Date of Service: November 15, 2023
Facial swelling and pain drastically improved. No fever, no vomiting. Tolerating diet.
Objective Data
-
Labs:
Laboratory Results
11/15/23
06:25
WBC Pending
Hgb Pending
Hct Pending
Plt Count Pending
Sodium 135
Potassium 4.4
Chloride 103
Carbon Dioxide 21 L
BUN 21 H
Creatinine 0.5 L
Glucose 120 H
Calcium 9.1
Vital Signs:
Vital Signs
Temp Pulse Resp BP Pulse Ox
98.0 F 58 18 156/88 97
11/14/23 23:55 11/15/23 08:21 11/14/23 23:55 11/15/23 08:21 11/14/23 23:55
I&O
11/14/23 11/15/23 11/16/23
06:59 06:59 06:59
Intake Total 960 / 960 995 / 995
Balance 960 / 960 995 / 995
--- NOTE | 2023-11-15 13:03 | PHA.VAN.FU ---
Vancomycin Assessment / Plan
- Assessment
Renal Function: SCR Decreasing (0.6>0.5)
WBC's are: Trending Down (22.1>19.5 (Patient on IV decadron))
In the past 24 hrs, patient has been: Afebrile
Concomitant Antimicrobials: Ampicilin-Sulbactam
- Dosing Plan
Continue: Vancomycin 1250mg IV Q12hrs
- Monitoring Plan
Peak Level: Ordered for today 11/15/23 at 21:00
Trough Level: Ordered for 11/16/23 at 05:30
- Follow Up
Pharmacy will continue to follow.
Vancomycin Follow UP
- -
Patient Age: 63
Patient Sex: Female
Vancomycin Day #: 3
Indication: Eye Or Ent Infection
Requesting Provider: Dr. Laird
Pertinent Antimicrobial Allergies:
piperacillin - itchy & rash on arm where IV was infusing
Height / Weight:
Height 5 ft 2 in
Actual Weight 126.598 kg
Pertinent Past Medical History: BMI ~51
- Vital Signs / Lab Results
Temp Pulse Resp BP Pulse Ox
98.2 F 58 20 156/88 95
11/15/23 07:53 11/15/23 08:21 11/15/23 07:53 11/15/23 08:21 11/15/23 07:53
Lab Results - Hematology
11/13/23 11/14/23 11/15/23
05:45 05:59 06:25
WBC 27.2 H 22.1 H 19.5 H
Lab Results - Chemistry
11/13/23 11/14/23 11/15/23
05:45 05:59 06:25
BUN 20 H 19 H 21 H
Creatinine 0.7 0.6 0.5 L
Estimated Creat Clear 106 124 124
Albumin 3.8
Microbiology Results
11/12/23 12:19 Blood Culture - Preliminary
Blood/Venous No Growth in 72 hours- Final report to follow
11/12/23 12:07 MRSA Screen - Final
Nose Staph aureus MRSA
--- NOTE | 2023-11-15 14:02 | W.PN.ID1 ---
Date of Service
Date of Service: November 15, 2023
Today's Communication
Transition to oral Augmentin and doxycycline.
Assessment / Plan
Left facial cellulitis
Leukocytosis
MRSA colonized.
HTN
[place]
Obesity
Osteoarthritis
Ovarian cyst
Recommendations:
Patient continues to feel improved. Marked improvement in overall edema today.
Evaluated by ENT on 11/13/2023, with expression of purulence. Unfortunately, processing issue with cultures have rendered them unavailable.
Patient found to be MRSA screen positive. Swab obtained previously and is being subcultured at the present.
Long discussion with patient about options. At this time, can likely discharge on oral Augmentin and doxycycline for an additional 7 days.
Will call patient when full sensitivities are available.
Happy to follow in the office in 1 to 2 weeks.
Chief Complaint
-: Cellulitis
Subjective / Review of Systems
Overall feeling improved. Still with a small area of induration above the left lip/nasolabial fold area. Marked decrease in overall edema of the face.
Vital Signs / Physical Exam
Vital Signs
Vital Signs
Temp Pulse Resp BP Pulse Ox
98.2 F 58 20 156/88 95
11/15/23 07:53 11/15/23 08:21 11/15/23 07:53 11/15/23 08:21 11/15/23 07:53
Physical Exam
Constitutional: No Acute Distress, Comfortable and Non-toxic
Pulmonary: Non Labored
Skin: Other (Decrease in overall facial edema.)
Wound: None
Neurological: Awake and Alert
Objective Data
Lab Data
Lab Results
11/15/23 06:25
11/15/23 06:25
Estimated Creat Clear 124 ml/min 11/15/23 06:25
Total Bilirubin 0.7 mg/dl (0.2-1.3) 11/13/23 05:45
AST 24 U/L (14-36) 11/13/23 05:45
ALT 40 U/L (0-35) H 11/13/23 05:45
Alkaline Phosphatase 79 U/L (38-126) 11/13/23 05:45
Most recent labs reviewed.
Micro Results:
11/12/23 12:07 MRSA Screen - Preliminary
Nose Staph aureus MRSA
11/12/23 12:19 Blood Culture - Preliminary
Blood/Venous No Growth in 72 hours- Final report to follow
Imaging:
11/12/2023 CT facial bones with IV contrast: Markedly limited evaluation of the superficial facial soft tissues in light of marked beam hardening artifact from extensive dental metallic hardware. Edematous/inflammatory changes of the left-sided
superficial facial soft tissues with likely small volume bubbles of air suspicious for infectious process. Although no definitive well-formed abnormal focal fluid collection seen within the superficial left facial soft tissues, this cannot be
excluded on the basis of this study.
Care Review
Plan reviewed with: Nurse and Physician (Hospitalist)
--- NOTE | 2023-11-15 14:06 | W.DCSUMMARY ---
Discharge Summary
Discharge Data
Date of Admission: 11/12/23
Date of Discharge: 11/15/23
-
Pending Results: No
Hospital Course
Discharge diagnosis:
Severe left facial cellulitis
Acute hyponatremia
Left big toe ingrown toenail
Benign essential hypertension
Morbid obesity
Obstructive sleep apnea
Consults: ENT, ID
CT facial bones:
Markedly limited evaluation of the superficial facial soft tissues in light of marked beam hardening artifact from extensive dental metallic hardware. Edematous/inflammatory changes of the left-sided superficial facial soft tissues with likely small
volume bubbles of air suspicious for infectious process. Although no definitive well-formed abnormal focal fluid collection seen within the superficial left facial soft tissues, this cannot be excluded on the basis of this study.
Hospital course:
62-year-old female with a past medical history of hypertension, migraine headaches, and morbid obesity presents with left facial swelling and pain, and was found to have severe cellulitis of her left face with extension to her right cheek. The ER
attempted to drain her left upper molar without any success. CT of the facial bones was negative for abscess or fluid collection. Patient received Zosyn in the ER, and had hives with itching.
She was treated with IV Rocephin and Flagyl. She was seen in conjunction with ID, who transitioned her to vancomycin and Unasyn. She tolerated Unasyn without any reactions. Her MRSA screen is positive, culture pending.
Patient was seen in conjunction with ENT, who noted nasal crusting and purulence. Her facial cellulitis is possibly from the nose versus teeth. ENT recommended treatment with IV steroids in addition to the IV antibiotics.
Patient was also found to have acute hyponatremia. This is likely due to excess ADH release from pain. Patient was treated with a fluid restriction. Her sodium normalized.
After several days of IV steroids and IV antibiotics, patient's facial pain, swelling, and redness improved dramatically. The sensitivities of her MRSA culture are still pending. ID has cleared her for discharge on Augmentin and doxycycline for 7
days. ID will call her with the sensitivities. She can follow-up with her primary care doctor in 1 week, ENT in the office in 2 weeks, and ID as needed in 1-2 weeks.
Disposition: Home self-care
Discharge planning: Required 37 minutes
Discharge Plan
-
Patient Disposition: Home (Routine Discharge)
Discharge Diagnosis/Procedures: Severe facial cellulitis, possibly from nose versus teeth as a source
Condition: Good
Diet: Low Fat and Low Cholesterol
Activity: As tolerated
Activity Restrictions/Additional Instructions:
Please follow-up with your primary care doctor in 1 week, and ENT in the office in 2 weeks.
Can also follow-up with the infection doctor in the office in 1-2 weeks as needed.
Wound Care Instructions Left Great Toe- Clean with normal saline or soap and water. Apply Bacitracin ointment and dry dressing daily.
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
Referrals:
Quan Middleton MD [Family Provider] - in one week
Cameron Vargas MD [Active] - in two weeks
Mehdi Laird DO [Active] - in one to two weeks
Prescriptions:
New
acetaminophen [Tylenol Extra Strength] 500 mg Tablet
1,000 mg PO Q4HPRN PRN (Reason: mild pain/CHOPRA/temp> 100.4F) Qty: 60 0RF
doxycycline monohydrate 100 mg capsule
100 mg PO BID 7 Days Qty: 14 0RF
amoxicillin-pot clavulanate 875-125 mg tablet
1 tab PO BID 7 Days Qty: 14 0RF
Continued
amlodipine 2.5 mg Tablet
2.5 mg PO HS
hydrochlorothiazide 25 mg Tablet
25 mg PO DAILY
losartan 100 mg Tablet
100 mg PO DAILY
penicillin V potassium 500 mg tablet
500 mg PO DIRECTED
Patient Comments:
11/12/2023, filled on 11/11/2023 for 28 tablets, 7-day supply; pt. instructed to take 2 tablets for first dose and then 1 tablet daily thereafter.
ibuprofen [Advil] 200 mg Tablet
600 mg PO DAILYPRN PRN (Reason: mild pain)
ergocalciferol (vitamin D2) 1,250 mcg (50,000 unit) Capsule
2,500 mcg PO QMONTH
Excedrin Migraine 250-250-65 mg Tablet
2 tab PO DAILYPRN PRN (Reason: migraine)
estradiol [Yuvafem] 10 mcg Tablet
10 mcg VAGINAL MOWEFR
Patient Comments:
pt takes in the morning
Discharge Orders:
Discharge Patient (As Directed); Ordered 11/15/23
Ordered By: Dex Saucedo
Discharge Date and Time
Print Language: PARAGUAYAN
--- NOTE | 2023-11-15 14:33 | CM ---
Chart reviewed home no needs.
Plan; Home today no needs.
[2023-11-15 15:15] VITALS: BP 153/65
== END 2023-11-15 17:35 | disposition home or self-care (01) | DRG 603 ==
LOC: 4 WEST ACU 10:47
PROVIDERS: ADMITTING PHYSICIAN Family Medicine; CONSULT PHYSICIAN Otolaryngology; EMERGENCY PHYSICIAN Emergency Medicine; FAMILY PHYSICIAN Family Medicine; OTHER PHYSICIAN Internal Medicine Infectious Disease
PROC: 0J913ZZ Drainage of Face Subcutaneous Tissue and Fascia, Percutaneous Approach (ICD-10-PCS; 2023-11-12)
DX: L03.211 Cellulitis of face (principal); Z68.43 Body mass index [BMI] 50.0-59.9, adult; E87.1 Hypo-osmolality and hyponatremia; I10 Essential (primary) hypertension; G43.909 Migraine, unspecified, not intractable, without status migrainosus; E66.01 Morbid (severe) obesity due to excess calories; G47.33 Obstructive sleep apnea (adult) (pediatric); M19.90 Unspecified osteoarthritis, unspecified site; Z96.643 Presence of artificial hip joint, bilateral; Z88.1 Allergy status to other antibiotic agents; Z88.0 Allergy status to penicillin; Z91.018 Allergy to other foods; Z22.322 Carrier or suspected carrier of Methicillin resistant Staphylococcus aureus
CPT/HCPCS: 41800; 70487; 80048; 80053; 85025; 85027; 87040; 87070; 87147; 87186; 96365; 96367; 96375; 99285; Q9967